=== PATIENT | female | born 1990 | race Caucasian/White ===

== ENCOUNTER → 2022-09-07 15:12 | Outpatient (CLI) | payer BC, SELFPAY ==
--- NOTE | 2022-09-07 15:14 | DI.RAD.S_ITS ---
PROCEDURE: XR FOOT RT MIN 3V INDICATIONS: Dorsal right foot lump TECHNIQUE: 3 views of the foot were acquired. COMPARISON: None. FINDINGS: Bones: No fractures or dislocations. No suspicious bony lesions. Soft tissues: No tibiotalar joint effusion. IMPRESSION: No acute osseous abnormality. If symptoms persist, follow-up radiographs and/or CT or MRI may be helpful for further evaluation. Dictated by: Tato Serrano M.D. on 09/08/2022 at 10:21 Approved by: Tato Serrano M.D. on 09/08/2022 at 10:25
== END ==
PROVIDERS: PCP Physician Assistant; Referring Provider Physician Assistant; Visit Provider Physician Assistant
DX: M79.671 Pain in right foot (principal)
CPT/HCPCS: 73630

== ENCOUNTER → 2024-04-20 13:25 | Outpatient (CLI) | payer BC, SELFPAY ==
--- NOTE | 2024-04-20 13:29 | DI.MG.S_ITS ---
MM diagnostic mammo BI, US breast RT limited: 04/20/2024 BI-RADS: 2 CLINICAL: 33-year old female for bilateral diagnostic mammogram and right diagnostic breast ultrasound. Tyrer-Cuzick lifetime risk of 12.7%. No personal or first-degree family history of breast cancer. The patient reports a palpable abnormality (1 to 7 days) in the right breast. PRIOR EXAMS: None. This is a baseline examination. MAMMOGRAPHY TECHNIQUE: 2D and 3D (tomosynthesis) digital mammographic views obtained, with additional images as needed for full coverage. Current study was also evaluated with a Computer Aided Detection (CAD) system. ULTRASOUND TECHNIQUE Real-time malone scale and color doppler imaging of the area of clinical interest was performed with image documentation. TARGETED Right Breast Ultrasound: Real-time ultrasound exam was performed focused to area of clinical and/or imaging concern. DENSITY C. The breasts are heterogeneously dense, which may obscure small masses. MAMMOGRAPHY FINDINGS Right (finding-1): Upper Inner at 2:00, Middle depth: Underlying surface marker and correlating with patient concern of palpable lump there is a circumscribed, oval mass present. The is a smaller adjacent oval mass which may be connected. In conglomerate the masses measure up to 2.4 cm. Left: No suspicious mass, asymmetry, microcalcification, or other abnormality seen. ULTRASOUND FINDINGS Right (finding-1): Upper Inner at 2:00, 4 cm from nipple, measuring 2.6 x 1.8 x 1 cm: Correlating with findings on mammogram there is a cluster of macrocysts showing posterior acoustic enhancement. IMPRESSION: Right * No evidence of malignancy with benign findings. Left * No evidence of malignancy. RECOMMENDATIONS Right: Upper Inner at 2:00, 4 cm from nipple * Clinical follow up is recommended. Bilateral * Annual screening mammography beginning at age 40. OVERALL ASSESSMENT CATEGORY BI-RADS-2: Benign. The [employer] recommends annual screening mammography beginning at age 40 for women with average risk of breast cancer. ELECTRONICALLY SIGNED: Kristi Baires M.D. on 04/20/2024 at 03:06:43 PM PT Interpreting Station ID: [id number]
== END ==
LOC: MAMMO 13:26
PROVIDERS: PCP Physician Assistant; Referring Provider Physician Assistant; Visit Provider Physician Assistant
DX: N63.12 Unspecified lump in the right breast, upper inner quadrant (principal); R92.30 Dense breasts, unspecified
CPT/HCPCS: 76642; 77066; G0279